=== PATIENT | male | born 1945 | race African-American/Black ===

== ENCOUNTER 2020-02-03 08:44 | Emergency (ER) | payer OTHER ==
[2020-02-03 08:52] VITALS: BP 134/66; PULSE 62; TEMP 98.8; BMI 23.5
--- NOTE | 2020-02-03 08:52 | PDOC ---
Rapid Medical Evaluation Time Seen by Provider: 02/03/20 08:46 Medical Evaluation: Allergies Allergy/AdvReac Type Severity Reaction Status Date / Time No Known Allergies Allergy Verified 12/23/19 08:26 02/03/20 08:49 CC: hit rt foot on stool 2 days ago and now with pain and swelling to foot greater to mcp of 1 st toe, hx kidney tx Exam: Noted edema and fluctuant over lat aspect of 1 st mcp without increased warmth, rt foot (dorsally ) + edema, FROM of toes, 2+ pedal pulse Plan: xray of the foot Discharge Disposition - Diagnosis Toe injury - Referrals - Patient Instructions - Post Discharge Activity
[2020-02-03] MEDS ORDERED: ACETAMINOPHEN 325 MG TABLET (FP) PO ONE (09:28)
--- NOTE | 2020-02-03 09:29 | PDOC ---
History of Present Illness - General Chief Complaint: Injury Stated Complaint: RT FOOT PAIN/SWOLLEN Time Seen by Provider: 02/03/20 08:46 - History of Present Illness Initial Comments: Ernesto Leyva is a 74yo man with a PMH of CVA (12/2019), HTN, kidney transplant, right-sided weakness who presents to the ED with right foot pain after striking his foot on a chair leg while walking on Sunday. He has been able to ambulate with his walker, which he uses at baseline, but states that he has had persistent pain and swelling on the inside of his right foot. He took 2 tablets of acetaminophen yesterday without any significant improvement so came to the ED for evaluation. Past History - Medical History Allergies/Adverse Reactions: Allergies Allergy/AdvReac Type Severity Reaction Status Date / Time No Known Allergies Allergy Verified 12/23/19 08:26 Home Medications: Ambulatory Orders Hydrochlorothiazide 25 mg PO DAILY 12/23/19 Metoprolol Tartrate 25 mg PO BID 12/23/19 Mycophenolate Mofetil [Cellcept] 500 mg PO BID 12/23/19 Prednisone 5 mg PO DAILY 12/23/19 Tacrolimus 4 mg PO BID 12/23/19 Tacrolimus [Prograf] 4 mg PO BID 12/23/19 Tamsulosin HCl 0.4 mg PO DAILY 12/23/19 Acetaminophen [Tylenol] 650 mg PO Q6H PRN 12/24/19 Acetaminophen [Tylenol .Regular Strength -] 650 mg PO Q6H PRN tablet 12/25/19 Aspirin Coated [Ecotrin -] 81 mg PO DAILY tablet.ec 12/25/19 Atorvastatin Ca [Lipitor] 80 mg PO HS tablet 12/25/19 Multivitamins [Multivit ([facility] Formul[facility])] 1 tab PO DAILY tab 12/25/19 Nifedipine ER [Procardia XL -] 90 mg PO DAILY tab.er.24 12/25/19 Atorvastatin Ca [Lipitor] 80 mg PO HS #30 tab 12/29/19 Mycophenolate Mofetil [Cellcept -] 500 mg PO BID tablet 12/29/19 Nifedipine [Procardia Xl] 90 mg PO HS #30 tab.er.24 12/29/19 Anemia: No Asthma: No Cancer: No Cardiac Disorders: Yes (HTN) CVA: No COPD: No CHF: No Dementia: No Diabetes: No GI Disorders: No Disorders: No HTN: Yes Hypercholesterolemia: Yes Liver Disease: No Seizures: No Thyroid Disease: No - Surgical History Abdominal Surgery: Yes (Right inguinal hernia repair) Appendectomy: No Cardiac Surgery: No Cholecystectomy: No Lung Surgery: No Neurologic Surgery: No Orthopedic Surgery: Yes (Right shoulder fracture repair) - Immunization History Immunization Up to Date: Yes - Psycho-Social/Smoking History Smoking History: Never smoked Information on smoking cessation initiated: No - Substance Abuse Hx (Audit-C & DAST Scrn) How often the patient has a drink containing alcohol: Never Score: In Men: 4 or > Positive; In Women: 3 or > Positive: 0 Screen Result (Pos requires Nsg. Audit-10AR): Negative In the last yr the pt used illegal drug/Rx for NonMed reason: No Score: Yes response is considered Positive: 0 Screen Result (Positive result requires Nsg. DAST-10): Negative Review of Systems - Review of Systems Comments:: General: No fevers, no chills, no weight or appetite change, no malaise HEENT: No changes in vision, no changes in hearing, no congestion, no sore throat CV: No chest pain, no palpitations, no LE edema Pulm: No SOB, no cough, no wheezing GI: No nausea or vomiting, no change in bowel habits, no melena : No frequency, no urgency, no dysuria Musc: See HPI Skin: No rash, no lesions, no erythema Endo: No excessive thirst, no heat/cold intolerance Heme: No unusual bruising or bleeding, no swollen glands Neuro: No syncope, no numbness/tingling, no focal weakness Vasc: No claudication Psych: No recent change in mood, no SI or HI *Physical Exam - Vital Signs Last Vital Signs Temp Pulse Resp BP Pulse Ox 98.8 F 62 17 134/66 98 02/03/20 08:49 02/03/20 08:49 02/03/20 08:49 02/03/20 08:49 02/03/20 08:49 - Physical Exam General: Comfortable, no acute distress HEENT: Atraumatic, PERRL, EOMI, MMM, voice normal, normal neck ROM Cards: RRR, no murmur appreciated Pulm: Comfortable on room air Ext: Feet w/ bilateral bunions. Rt foot with swelling, erythema, tenderness over medial foot at bunion. Able to bear weight Vasc: Palpable pedal pulses bilaterally Skin: Normal color, no rashes or lesions Neuro: A&Ox3, CN grossly intact, normal speech, motor/sensory grossly intact and symmetric Psych: Mood appropriate to situation ED Treatment Course - RADIOLOGY Radiology Studies Ordered: Category Date Time Status FOOT-RIGHT [RAD] Stat Radiology 02/03/20 09:27 Ordered Medical Decision Making - Medical Decision Making 02/03/20 09:29 Ernesto Leyva is a 74yo man with a PMH of CVA (12/2019), HTN, kidney transplant, right-sided weakness who presents to the ED with right foot pain, swelling, and erythema following a minor injury 3 days ago. - Able to ambulate, unlikely fracture, but will send for xrays to evaluate - Acetaminophen for pain 02/03/20 10:03 - Xray reviewed, no obvious fracture. - Plan to discharge with ortho follow up pending radiology report Discussed with Dr Srea Landa PGY3 Discharge - Discharge Information Problems reviewed: Yes Clinical Impression/Diagnosis: Foot pain, right Condition: Stable Disposition: HOME - Admission No - Follow up/Referral Referrals: Fernando Snow MD [Staff Physician] - - Patient Discharge Instructions Patient Printed Discharge Instructions: DI for Foot Pain Additional Instructions: You were seen in the ER for a foot/toe injury. We did an exam and X-rays, which showed no new concerning findings or fractures. We placed your foot and ankle in an MARIIA bandage, which you can wear for comfort as you need it. You can bear weight on the ankle/foot as tolerated (as your pain allows). After our assessment, we do not believe you are having a medical emergency at this time, and we believe you are safe to go home. Use RICE therapy (rest, ice, compression, elevation) and take Tylenol for the pain. Please follow up with your primary care provider in 1-3 days. Call their clinic as soon as possible and tell them you were seen in the ER. If you have any new or worsening symptoms, especially worsening or severe pain of the ankle/foot/toes, or numbness, tingling, weakness, redness, or paleness of the area, please come back to the ER at any time (24 hours a day). - Post Discharge Activity
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
[2020-02-03] MEDS ORDERED: ACETAMINOPHEN 325 MG TABLET (FP) ONE (10:21)
== END 2020-02-03 10:35 | disposition home or self-care (01) ==
LOC: SUPCPDRO 08:44 → JER 08:44
DX: S99.921A Unspecified injury of right foot, initial encounter (principal); W22.8XXA Striking against or struck by other objects, initial encounter
CPT/HCPCS: 73660-TC-FY; 99283-25

== ENCOUNTER 2020-05-31 12:07 | Emergency (ER) | payer OTHER ==
[2020-05-31 12:32] VITALS: BP 138/75; PULSE 65; TEMP 98.2; BMI 20.3
[2020-05-31] MEDS ORDERED: ACETAMINOPHEN 500 MG TABLET (FP) PO ONE (13:30)
[2020-05-31] MEDS ORDERED: ACETAMINOPHEN 500 MG TABLET (FP) ONE (13:32)
== END 2020-05-31 13:46 | disposition home or self-care (01) ==
LOC: JERFT 12:07
DX: S63.501A Unspecified sprain of right wrist, initial encounter (principal)
CPT/HCPCS: 73110-TC-RT-FY; 73130-TC-RT-FY; 99283-25

== ENCOUNTER 2020-06-26 07:27 | Emergency (ER) | payer OTHER ==
[2020-06-26 08:10] VITALS: BP 142/71; PULSE 82; TEMP 98.1; BMI 20.7
[2020-06-26] MEDS ORDERED: traMADol HCL 50 MG TABLET PO ONE (09:48)
[2020-06-26] MEDS ORDERED: traMADol HCL 50 MG TABLET ONE (09:59)
== END 2020-06-26 10:08 | disposition home or self-care (01) ==
LOC: JER 07:27
DX: M25.531 Pain in right wrist (principal); M25.431 Effusion, right wrist
CPT/HCPCS: 73110-TC-RT-FY; 73130-TC-RT-FY; 99284-25

== ENCOUNTER 2020-07-13 13:23 | Inpatient (IN) | payer OTHER ==
[2020-07-13] MEDS ORDERED: SODIUM CHLORIDE 1,000 ML IV SCH ×2 (13:30→18:59)
[2020-07-13 14:01] VITALS: BMI 20.3
[2020-07-13] MEDS ORDERED: CLOPIDOGREL BISULFATE 300 MG TABLET PO ONE (14:18)
[2020-07-13 14:30] LABS: BASO % 0.2 % (0-2.0); EOS % 1.6 % (0-4.5); HEMATOCRIT 36.7 % (35.4-49); HEMOGLOBIN 12.1 GM/dL (11.7-16.9); MCH 28.1 pg (25.7-33.7); MEAN CELL VOLUME 85.3 fl (80-96); MEAN PLT VOLUME 7.7 fl (7.5-11.1); MONO % 16.1 % (3.8-10.2); NEUT % 75.1 % (42.8-82.8); PLATELET COUNT 283 K/MM3 (134-434); RBC 4.31 M/mm3 (4.00-5.60); RDW 17.7 % (11.9-15.9); WHITE BLOOD COUNT 6.1 K/mm3 (4.0-10.0)
[2020-07-13 14:35] LABS: INR 0.97 (0.83-1.09); PROTHROMBIN TIME (PATIENT) 11.8 SEC (9.7-13.0)
[2020-07-13 14:37] LABS: ACTIVATED PTT 27.3 SECONDS (25.2-36.5)
[2020-07-13 14:47] LABS: CHLORIDE 102 mmol/L (98-107); POTASSIUM 3.5 mmol/L (3.5-5.1); SODIUM 135 mmol/L (136-145)
[2020-07-13 14:49] LABS: CALCIUM 9.3 mg/dL (8.5-10.1)
[2020-07-13 14:50] LABS: ALBUMIN 3.3 g/dl (3.4-5.0); ANION GAP 9 MMOL/L (8-16); CO2 24 mmol/L (21-32); GLUCOSE,RANDOM 115 mg/dL (74-106)
[2020-07-13 14:53] LABS: CREATININE 1.3 mg/dL (0.55-1.3); SGOT/AST 13 U/L (15-37); SGPT/ALT 23 U/L (13-61)
[2020-07-13 14:54] LABS: BILIRUBIN,TOTAL 0.4 mg/dL (0.2-1); TOT PROT 6.7 g/dl (6.4-8.2)
[2020-07-13 14:56] LABS: ALK PHOS 69 U/L (45-117)
[2020-07-13] MEDS ORDERED: PT OWN MED DRAWER 7, Y5N ONE (15:02)
[2020-07-13] MEDS ORDERED: CLOPIDOGREL BISULFATE 300 MG TABLET ONE (15:02)
[2020-07-13 15:46] LABS: CHOLESTEROL 137 mg/dL (50-200)
[2020-07-13 15:47] LABS: LDL CHOLESTEROL (ONLY SJRH) 48 mg/dL (5-100); TRIGLYCERIDES 120 mg/dL (0-150)
[2020-07-13 15:49] LABS: HDL CHOLESTEROL 65 mg/dL (40-60)
[2020-07-13 18:16] LABS: EPI CELLS 7 /uL (0-25.1); HYALINE CASTS 3 /uL (0-3.1); PH,URINE 5.5 (5.0-8.0); URINE APPEARANCE CLEAR; URINE BACTERIA 32 /uL (0-1359); URINE BILIRUBIN NEGATIVE (NEGATIVE); URINE COLOR YELLOW; URINE GLUCOSE (UA) TRACE (NEGATIVE); URINE KETONE NEGATIVE (NEGATIVE); URINE LEUK ESTERASE NEGATIVE (NEGATIVE); URINE NITRITE NEGATIVE (NEGATIVE); URINE PROTEIN 3+ (NEGATIVE); URINE RBC 8 /uL (0-23.9); URINE UROBILINOGEN 0.2 mg/dL (0.2-1.0); URINE WBC 5 /uL (0-25.8)
[2020-07-13] MEDS ORDERED: ATORVASTATIN CA 80 MG TABLET (FP) PO SCH (18:45)
[2020-07-13] MEDS ORDERED: ATORVASTATIN CA 80 MG TABLET (FP) ONE (20:50)
[2020-07-14 02:47] LABS: LDH 171 U/L (87-246)
[2020-07-14 07:52] LABS: BASO % 0.4 % (0-2.0); EOS % 3.1 % (0-4.5); HEMATOCRIT 34.7 % (35.4-49); HEMOGLOBIN 11.7 GM/dL (11.7-16.9); LYMPH % 12.4 % (8-40); MCH 28.4 pg (25.7-33.7); MCHC 33.8 g/dl (32.0-35.9); MEAN CELL VOLUME 83.9 fl (80-96); MEAN PLT VOLUME 7.4 fl (7.5-11.1); MONO % 20.1 % (3.8-10.2); PLATELET COUNT 257 K/MM3 (134-434); RBC 4.14 M/mm3 (4.00-5.60); RDW 17.4 % (11.9-15.9); WHITE BLOOD COUNT 3.9 K/mm3 (4.0-10.0)
[2020-07-14 07:56] LABS: POTASSIUM 3.9 mmol/L (3.5-5.1)
[2020-07-14 08:00] LABS: ALBUMIN 2.8 g/dl (3.4-5.0); BLOOD UREA NITROGEN 16.2 mg/dL (7-18); MAGNESIUM 1.9 mg/dL (1.8-2.4)
[2020-07-14 08:03] LABS: CREATININE 0.9 mg/dL (0.55-1.3); PHOSPHOROUS 2.5 mg/dL (2.5-4.9)
[2020-07-14 08:04] LABS: BILIRUBIN,TOTAL 0.4 mg/dL (0.2-1)
[2020-07-14 08:05] LABS: TOT PROT 5.5 g/dl (6.4-8.2)
[2020-07-14 08:53] LABS: ANISOCYTOSIS 0; MACROCYTOSIS 0; PLATELET ESTIMATE NORMAL
[2020-07-14] MEDS ORDERED: CLOPIDOGREL BISULFATE 75 MG TABLET (FP) ONE (11:24)
[2020-07-14] MEDS: CLOPIDOGREL BISULFATE 75 MG TABLET (FP) PO SCH (11:30)
[2020-07-14] MEDS ORDERED: METOPROLOL TARTRATE 25 MG TABLET (FP) ONE ×2 (14:28→23:04)
[2020-07-14] MEDS ORDERED: HYDROCHLOROTHIAZIDE 25 MG TABLET (FP) ONE (14:28)
[2020-07-14] MEDS ORDERED: FAMOTIDINE 20 MG TABLET ONE (14:29)
[2020-07-14] MEDS ORDERED: NIFEdipine E.R. 30 MG TABLET ONE (14:29)
[2020-07-14] MEDS ORDERED: MAG HYDROX/AL HYDROX/SIMETH 30 ML UNIT-DOSE CUP ONE ×2 (14:30→23:04)
[2020-07-14] MEDS ORDERED: TAMSULOSIN HCL 0.4 MG CAP ONE (14:30)
[2020-07-14] MEDS: MYCOPHENOLATE MOFETIL 500 MG TABLET PO SCH ×2 (14:32→23:07)
[2020-07-14] MEDS: predniSONE 5 MG TABLET (UD) PO SCH (14:34)
[2020-07-14] MEDS: TAMSULOSIN HCL 0.4 MG CAP PO SCH (14:35)
[2020-07-14] MEDS: MAG HYDROX/AL HYDROX/SIMETH 30 ML UNIT-DOSE CUP PO SCH ×4 (14:36→23:41)
[2020-07-14] MEDS: METOPROLOL TARTRATE 25 MG TABLET (FP) PO SCH ×2 (14:36→23:07)
[2020-07-14] MEDS: HYDROCHLOROTHIAZIDE 25 MG TABLET (FP) PO SCH (14:36)
[2020-07-14] MEDS: FAMOTIDINE 20 MG TABLET PO SCH (14:37)
[2020-07-14] MEDS: NIFEdipine E.R 60 MG TABLET PO SCH (14:41)
[2020-07-14] MEDS: hydrALAZINE HCL 25 MG TABLET (FP) PO SCH ×2 (14:41→23:06)
[2020-07-14] MEDS ORDERED: LABETALOL HCL 5 MG/1 ML (100MG/20 ML VIAL) IVPUSH ONE (15:58)
[2020-07-14] MEDS ORDERED: hydrALAZINE HCL 20 MG/ML VIAL IVPUSH ONE (18:23)
[2020-07-14] MEDS ORDERED: ATORVASTATIN CA 80 MG TABLET (FP) ONE (23:04)
[2020-07-14] MEDS ORDERED: hydrALAZINE HCL 25 MG TABLET (FP) ONE (23:04)
[2020-07-14] MEDS ORDERED: HEPARIN NA (PORCINE) 5,000 UNITS/ML 1ML VIAL ONE (23:05)
[2020-07-14] MEDS: HEPARIN NA (PORCINE) 5,000 UNITS/ML 1ML VIAL SQ SCH (23:07)
[2020-07-14] MEDS: ATORVASTATIN CA 80 MG TABLET (FP) PO SCH (23:07)
[2020-07-14] MEDS: MAGNESIUM HYDROX 2400MG/30ML ORAL SUSPENSION 30 ML CUP PO SCH (23:08)
[2020-07-15] MEDS: MAG HYDROX/AL HYDROX/SIMETH 30 ML UNIT-DOSE CUP PO SCH ×5 (03:30→21:10)
[2020-07-15 07:15] LABS: BASO % 0.3 % (0-2.0); EOS % 2.1 % (0-4.5); HEMATOCRIT 36.5 % (35.4-49); HEMOGLOBIN 12.3 GM/dL (11.7-16.9); LYMPH % 12.7 % (8-40); MCH 28.4 pg (25.7-33.7); MCHC 33.6 g/dl (32.0-35.9); MEAN CELL VOLUME 84.6 fl (80-96); MEAN PLT VOLUME 7.5 fl (7.5-11.1); MONO % 16.5 % (3.8-10.2); NEUT % 68.4 % (42.8-82.8); PLATELET COUNT 250 K/MM3 (134-434); RBC 4.32 M/mm3 (4.00-5.60); RDW 17.7 % (11.9-15.9); WHITE BLOOD COUNT 3.9 K/mm3 (4.0-10.0)
[2020-07-15 07:16] LABS: POTASSIUM 3.7 mmol/L (3.5-5.1)
[2020-07-15 07:17] LABS: ALBUMIN 2.9 g/dl (3.4-5.0)
[2020-07-15 07:18] LABS: BLOOD UREA NITROGEN 17.4 mg/dL (7-18); CALCIUM 9.5 mg/dL (8.5-10.1); MAGNESIUM 1.9 mg/dL (1.8-2.4)
[2020-07-15 07:21] LABS: PHOSPHOROUS 2.5 mg/dL (2.5-4.9)
[2020-07-15 07:23] LABS: BILIRUBIN,TOTAL 0.5 mg/dL (0.2-1); TOT PROT 5.8 g/dl (6.4-8.2)
[2020-07-15] MEDS: HEPARIN NA (PORCINE) 5,000 UNITS/ML 1ML VIAL SQ SCH ×3 (08:46→21:11)
[2020-07-15] MEDS: hydrALAZINE HCL 25 MG TABLET (FP) PO SCH ×3 (08:46→21:11)
[2020-07-15] MEDS: TAMSULOSIN HCL 0.4 MG CAP PO SCH (08:47)
[2020-07-15] MEDS ORDERED: PT OWN MED DRAWER 7, Y5N ONE ×2 (10:12→21:01)
[2020-07-15] MEDS: predniSONE 5 MG TABLET (UD) PO SCH (10:19)
[2020-07-15] MEDS: HYDROCHLOROTHIAZIDE 25 MG TABLET (FP) PO SCH (10:19)
[2020-07-15] MEDS: MYCOPHENOLATE MOFETIL 500 MG TABLET PO SCH (10:19)
[2020-07-15] MEDS: NIFEdipine E.R 60 MG TABLET PO SCH (10:19)
[2020-07-15] MEDS: CLOPIDOGREL BISULFATE 75 MG TABLET (FP) PO SCH (10:19)
[2020-07-15] MEDS: METOPROLOL TARTRATE 25 MG TABLET (FP) PO SCH ×2 (10:19→21:11)
[2020-07-15] MEDS: MAGNESIUM HYDROX 2400MG/30ML ORAL SUSPENSION 30 ML CUP PO SCH ×2 (10:19→21:10)
[2020-07-15] MEDS: FERROUS SO4 325 MG TABLET (FP) PO SCH (10:19)
[2020-07-15] MEDS: FAMOTIDINE 20 MG TABLET PO SCH (10:19)
[2020-07-15] MEDS ORDERED: NIFEdipine E.R. 90 MG TABLET PO SCH (12:07)
[2020-07-15] MEDS ORDERED: NIFEdipine E.R. 30 MG TABLET PO ONE (12:08)
[2020-07-15 18:06] LABS: HIV INTERPRETATION NEGATIVE (NEGATIVE)
[2020-07-15] MEDS: ATORVASTATIN CA 80 MG TABLET (FP) PO SCH (21:11)
[2020-07-15] MEDS: TACROLIMUS ANHYDROUS 1 MG CAPSULE PO SCH (21:18)
[2020-07-15] MEDS ORDERED: MYCOPHENOLATE MOFETIL 500 MG TABLET PO SCH (22:00)
[2020-07-15] MEDS ORDERED: TACROLIMUS ANHYDROUS 1 MG CAPSULE PO SCH (22:00)
[2020-07-16] MEDS: MAG HYDROX/AL HYDROX/SIMETH 30 ML UNIT-DOSE CUP PO SCH ×4 (00:14→11:32)
[2020-07-16] MEDS: hydrALAZINE HCL 25 MG TABLET (FP) PO SCH ×2 (06:14→13:47)
[2020-07-16] MEDS: HEPARIN NA (PORCINE) 5,000 UNITS/ML 1ML VIAL SQ SCH (06:14)
[2020-07-16] MEDS ORDERED: PT OWN MED DRAWER 7, Y5N ONE ×4 (06:52→13:45)
[2020-07-16 07:32] LABS: POTASSIUM 3.7 mmol/L (3.5-5.1)
[2020-07-16 07:44] LABS: ALBUMIN 2.9 g/dl (3.4-5.0); CALCIUM 9.3 mg/dL (8.5-10.1)
[2020-07-16 07:45] LABS: BLOOD UREA NITROGEN 23.2 mg/dL (7-18); MAGNESIUM 1.9 mg/dL (1.8-2.4)
[2020-07-16 07:48] LABS: CREATININE 1.1 mg/dL (0.55-1.3); PHOSPHOROUS 2.9 mg/dL (2.5-4.9)
[2020-07-16 07:49] LABS: BILIRUBIN,TOTAL 0.6 mg/dL (0.2-1); TOT PROT 5.8 g/dl (6.4-8.2)
[2020-07-16 07:58] LABS: BASO % 0.2 % (0-2.0); EOS % 3.8 % (0-4.5); HEMATOCRIT 36.6 % (35.4-49); HEMOGLOBIN 12.3 GM/dL (11.7-16.9); LYMPH % 15.7 % (8-40); MCH 28.2 pg (25.7-33.7); MCHC 33.5 g/dl (32.0-35.9); MEAN PLT VOLUME 7.9 fl (7.5-11.1); MONO % 18.5 % (3.8-10.2); NEUT % 61.8 % (42.8-82.8); PLATELET COUNT 264 K/MM3 (134-434); RBC 4.36 M/mm3 (4.00-5.60); RDW 17.5 % (11.9-15.9); WHITE BLOOD COUNT 4.5 K/mm3 (4.0-10.0)
[2020-07-16] MEDS: TAMSULOSIN HCL 0.4 MG CAP PO SCH (08:57)
[2020-07-16] MEDS ORDERED: PENICILLIN G BENZATHINE 2,400,000 UNIT/4 ML PFS IM ONE (09:05)
[2020-07-16] MEDS: CLOPIDOGREL BISULFATE 75 MG TABLET (FP) PO SCH (09:08)
[2020-07-16] MEDS: HYDROCHLOROTHIAZIDE 25 MG TABLET (FP) PO SCH (09:08)
[2020-07-16] MEDS: METOPROLOL TARTRATE 25 MG TABLET (FP) PO SCH (09:08)
[2020-07-16] MEDS: MAGNESIUM HYDROX 2400MG/30ML ORAL SUSPENSION 30 ML CUP PO SCH (09:08)
[2020-07-16] MEDS: FERROUS SO4 325 MG TABLET (FP) PO SCH (09:08)
[2020-07-16] MEDS: TACROLIMUS ANHYDROUS 1 MG CAPSULE PO SCH (09:09)
[2020-07-16] MEDS: FAMOTIDINE 20 MG TABLET PO SCH (09:09)
[2020-07-16] MEDS: predniSONE 5 MG TABLET (UD) PO SCH (11:31)
[2020-07-16 15:53] VITALS: BP 159/87; PULSE 55; TEMP 98.2
== END 2020-07-16 18:30 | disposition home health service (06) | DRG 69 ==
LOC: JER 13:23 → JERBED 17:50 → JICU 07-15 01:37
PROVIDERS: ATTEND Internal Medicine
DX: G45.9 Transient cerebral ischemic attack, unspecified (principal); Z94.0 Kidney transplant status; I69.351 Hemiplegia and hemiparesis following cerebral infarction affecting right dominant side; R29.810 Facial weakness; I16.0 Hypertensive urgency; N40.0 Benign prostatic hyperplasia without lower urinary tract symptoms; I12.9 Hypertensive chronic kidney disease with stage 1 through stage 4 chronic kidney disease, or unspecified chronic kidney disease; N18.9 Chronic kidney disease, unspecified
CPT/HCPCS: 36415; 70450-TC; 70551-TC; 71045-TC-FY; 71250-TC; 76775-TC; 80053; 80061; 80197; 81003; 82550; 82728; 83036; 83615; 83721; 83735; 84100; 84443; 84484; 85025; 85379; 85610; 85730; 86140; 86593; 86780; 86850; 86900; 86901; 87086; 87389; 93005; 93010; 93306-TC; 93880-TC; 97116-GP; 97161-GP; 99285-25; C9803; J1644; J7517; U0003

== ENCOUNTER 2021-05-31 09:04 | Emergency (ER) | payer OTHER ==
[2021-05-31 09:16] VITALS: TEMP 97.3; BMI 21.1
[2021-05-31] MEDS ORDERED: ACETAMINOPHEN 1000 MG/100 ML VIAL IVPB ONE (09:46)
[2021-05-31] MEDS ORDERED: ACETAMINOPHEN INJECTION 100 ML IVPB ONE (10:12)
[2021-05-31 10:49] LABS: EOS % 8.3 % (0-4.5); HEMATOCRIT 37.3 % (35.4-49); HEMOGLOBIN 11.9 GM/dL (11.7-16.9); LYMPH % 25.8 % (8-40); MCH 29.8 pg (25.7-33.7); MCHC 31.9 g/dl (32.0-35.9); MEAN CELL VOLUME 93.6 fl (80-96); MEAN PLT VOLUME 8.3 fl (7.5-11.1); MONO % 6.1 % (3.8-10.2); NEUT % 58.8 % (42.8-82.8); PLATELET COUNT 107 10^3/uL (134-434); RBC 3.99 M/mm3 (4.00-5.60); RDW 17.5 % (11.9-15.9); WHITE BLOOD COUNT 7.6 K/mm3 (4.0-10.0)
[2021-05-31 11:09] LABS: BLOOD UREA NITROGEN 37.4 mg/dL (7-18)
[2021-05-31 11:10] LABS: ALBUMIN 1.4 g/dl (3.4-5.0)
[2021-05-31 11:13] LABS: CREATININE 2.8 mg/dL (0.55-1.3)
[2021-05-31 11:14] LABS: BILIRUBIN,TOTAL 0.4 mg/dL (0.2-1); TOT PROT 5.4 g/dl (6.4-8.2)
[2021-05-31] MEDS ORDERED: SODIUM CHLORIDE 1,000 ML IV STA (12:45)
[2021-05-31 13:47] LABS: EPI CELLS 1 /uL (0-25.1); HYALINE CASTS 0 /uL (0-3.1); PH,URINE 5.5 (5.0-8.0); URINE APPEARANCE CLEAR; URINE BACTERIA 15 /uL (0-1359); URINE BILIRUBIN NEGATIVE (NEGATIVE); URINE COLOR YELLOW; URINE GLUCOSE (UA) 1+ (NEGATIVE); URINE KETONE NEGATIVE (NEGATIVE); URINE LEUK ESTERASE NEGATIVE (NEGATIVE); URINE NITRITE NEGATIVE (NEGATIVE); URINE PROTEIN 1+ (NEGATIVE); URINE RBC 2 /uL (0-23.9); URINE UROBILINOGEN 0.2 mg/dL (0.2-1.0); URINE WBC 2 /uL (0-25.8)
[2021-05-31 16:52] VITALS: BP 145/68; PULSE 78
== END 2021-05-31 16:25 | disposition short-term general hospital (02) ==
LOC: JER 09:04
PROC: 3E033NZ Introduction of Analgesics, Hypnotics, Sedatives into Peripheral Vein, Percutaneous Approach (ICD-10-PCS; principal; 2021-05-31)
PROC: 3E0337Z Introduction of Electrolytic and Water Balance Substance into Peripheral Vein, Percutaneous Approach (ICD-10-PCS; 2021-05-31)
DX: N17.9 Acute kidney failure, unspecified (principal); N13.30 Unspecified hydronephrosis
CPT/HCPCS: 36415; 74176-TC; 80053; 81003; 83605; 85025; 87086; 93005; 93010; 99285-25; C9803; J0131; U0003; U0005

== ENCOUNTER 2022-04-04 15:18 | Inpatient (IN) | payer OTHER ==
[2022-04-04] MEDS ORDERED: ACETAMINOPHEN 1000 MG/100 ML BAG IVPB ONE (17:35)
[2022-04-04] MEDS ORDERED: METOCLOPRAMIDE HCL INJECTION 10 MG/2 ML VIAL IVPUSH ONE (17:37)
[2022-04-04] MEDS ORDERED: METOCLOPRAMIDE HCL INJECTION 10 MG/2 ML VIAL ONE (18:02)
[2022-04-04] MEDS ORDERED: ACETAMINOPHEN INJECTION 100 ML IVPB ONE (18:03)
[2022-04-04] MEDS: SODIUM CHLORIDE 1,000 ML IV SCH (18:33)
[2022-04-04 19:32] LABS: BASO % 0.3 % (0-2.0); EOS % 1.2 % (0-4.5); HEMATOCRIT 35.8 % (35.4-49); HEMOGLOBIN 12.8 GM/dL (11.7-16.9); LYMPH % 12.2 % (8-40); MCH 30.5 pg (25.7-33.7); MCHC 35.6 g/dl (32.0-35.9); MEAN CELL VOLUME 85.7 fl (80-96); MEAN PLT VOLUME 8.5 fl (7.5-11.1); MONO % 17.6 % (3.8-10.2); NEUT % 68.7 % (42.8-82.8); PLATELET COUNT 208 10^3/uL (134-434); RBC 4.18 M/mm3 (4.00-5.60); RDW 18.5 % (11.9-15.9); WHITE BLOOD COUNT 6.9 K/mm3 (4.0-10.0)
[2022-04-04 19:34] LABS: EPI CELLS 4 /uL (0-25.1); HYALINE CASTS 0 /uL (0-3.1); URINE APPEARANCE CLEAR; URINE BACTERIA 0 /uL (0-1359); URINE BILIRUBIN NEGATIVE (NEGATIVE); URINE COLOR YELLOW; URINE GLUCOSE (UA) NEGATIVE (NEGATIVE); URINE KETONE NEGATIVE (NEGATIVE); URINE LEUK ESTERASE NEGATIVE (NEGATIVE); URINE NITRITE NEGATIVE (NEGATIVE); URINE PROTEIN 2+ (NEGATIVE); URINE RBC 13 /uL (0-23.9); URINE UROBILINOGEN 0.2 mg/dL (0.2-1.0); URINE WBC 4 /uL (0-25.8)
[2022-04-04 19:49] LABS: CHLORIDE 89 mmol/L (98-107)
[2022-04-04 19:51] LABS: ALBUMIN 3.6 g/dl (3.4-5.0); BLOOD UREA NITROGEN 27.9 mg/dL (7-18); CALCIUM 9.3 mg/dL (8.5-10.1); CO2 22 mmol/L (21-32); GLUCOSE,RANDOM 125 mg/dL (74-106)
[2022-04-04 19:54] LABS: CREATININE 1.6 mg/dL (0.55-1.3)
[2022-04-04 19:56] LABS: BILIRUBIN,TOTAL 0.3 mg/dL (0.2-1); TOT PROT 8.2 g/dl (6.4-8.2)
[2022-04-04 19:57] LABS: ALK PHOS 134 U/L (45-117)
[2022-04-04 20:11] LABS: ANION GAP 8 MMOL/L (8-16); SGOT/AST 73 U/L (15-37); SGPT/ALT 20 U/L (13-61); SODIUM 118 mmol/L (136-145)
[2022-04-04 21:51] LABS: CALCIUM 8.6 mg/dL (8.5-10.1)
[2022-04-04 21:52] LABS: BLOOD UREA NITROGEN 27.6 mg/dL (7-18)
[2022-04-04 21:55] LABS: CREATININE 1.3 mg/dL (0.55-1.3)
[2022-04-04] MEDS ORDERED: ALBUTEROL SO4 2.5/IPRATROPIUM 0.5 INH SOL 3 ML VIAL.NEB. NEB ONE (22:41)
[2022-04-04] MEDS: ALBUTEROL SO4 2.5/IPRATROPIUM 0.5 INH SOL 3 ML VIAL.NEB. NEB SCH ×2 (22:52→23:10)
[2022-04-05 02:23] LABS: BLOOD UREA NITROGEN 27.3 mg/dL (7-18)
[2022-04-05 02:28] LABS: CREATININE 1.3 mg/dL (0.55-1.3)
[2022-04-05] MEDS: NIFEdipine E.R 60 MG TABLET PO SCH ×3 (02:40→22:59)
[2022-04-05] MEDS: ALBUTEROL SO4 2.5/IPRATROPIUM 0.5 INH SOL 3 ML VIAL.NEB. NEB SCH (02:41)
[2022-04-05] MEDS ORDERED: NIFEdipine E.R 60 MG TABLET ONE ×3 (02:43→22:42)
[2022-04-05] MEDS: hydrALAZINE HCL 50 MG TABLET (FP) PO SCH ×4 (04:26→22:59)
[2022-04-05] MEDS ORDERED: hydrALAZINE HCL 50 MG TABLET (FP) ONE ×3 (04:29→22:50)
[2022-04-05] MEDS ORDERED: HEPARIN NA (PORCINE) 5,000 UNITS/ML 1ML VIAL ONE ×3 (08:27→22:42)
[2022-04-05] MEDS: HEPARIN NA (PORCINE) 5,000 UNITS/ML 1ML VIAL SQ SCH ×3 (08:31→22:59)
[2022-04-05 08:52] LABS: CREATININE, URINE RANDOM < 13.0 mg/dL (30-150)
[2022-04-05 12:07] LABS: BASO % 0.6 % (0-2.0); EOS % 1.5 % (0-4.5); HEMATOCRIT 36.2 % (35.4-49); HEMOGLOBIN 12.8 GM/dL (11.7-16.9); LYMPH % 11.2 % (8-40); MCH 30.6 pg (25.7-33.7); MCHC 35.4 g/dl (32.0-35.9); MEAN CELL VOLUME 86.5 fl (80-96); MEAN PLT VOLUME 7.7 fl (7.5-11.1); MONO % 17.7 % (3.8-10.2); PLATELET COUNT 161 10^3/uL (134-434); RBC 4.19 M/mm3 (4.00-5.60); RDW 17.8 % (11.9-15.9)
[2022-04-05 12:38] LABS: ALBUMIN 3.4 g/dl (3.4-5.0); BLOOD UREA NITROGEN 22.2 mg/dL (7-18); CALCIUM 9.7 mg/dL (8.5-10.1)
[2022-04-05 12:39] LABS: MAGNESIUM 2.2 mg/dL (1.8-2.4)
[2022-04-05 12:41] LABS: CREATININE 1.2 mg/dL (0.55-1.3); PHOSPHOROUS 2.8 mg/dL (2.5-4.9)
[2022-04-05 12:43] LABS: BILIRUBIN,TOTAL 0.6 mg/dL (0.2-1)
[2022-04-05 13:06] LABS: TOT PROT 6.8 g/dl (6.4-8.2)
[2022-04-05] MEDS ORDERED: LOSARTAN POTASSIUM 50 MG TABLET ONE (14:44)
[2022-04-05] MEDS ORDERED: ACETAMINOPHEN 325 MG TABLET (FP) ONE (14:45)
[2022-04-05] MEDS: MYCOPHENOLATE MOFETIL 500 MG TABLET PO SCH ×2 (14:54→22:59)
[2022-04-05] MEDS: LOSARTAN POTASSIUM 25 MG TABLET PO SCH (14:54)
[2022-04-05] MEDS: ACETAMINOPHEN 325 MG TABLET (FP) PO PRN (14:54)
[2022-04-05] MEDS ORDERED: ALBUTEROL SO4 HFA INHALER IH ONE (18:44)
[2022-04-05] MEDS: TACROLIMUS ANHYDROUS 1 MG CAPSULE PO SCH (18:50)
[2022-04-05] MEDS: ALBUTEROL SO4 HFA INHALER IH PRN (18:50)
[2022-04-05] MEDS: SODIUM CHLORIDE 1,000 ML IV SCH (18:51)
[2022-04-05] MEDS ORDERED: hydrALAZINE HCL 25 MG TABLET (FP) ONE (22:42)
[2022-04-06] MEDS: hydrALAZINE HCL 50 MG TABLET (FP) PO SCH ×2 (05:57→14:25)
[2022-04-06] MEDS: HEPARIN NA (PORCINE) 5,000 UNITS/ML 1ML VIAL SQ SCH ×3 (05:58→22:43)
[2022-04-06] MEDS: MYCOPHENOLATE MOFETIL 500 MG TABLET PO SCH ×3 (05:58→22:42)
[2022-04-06] MEDS: SODIUM CHLORIDE 1,000 ML IV SCH (06:16)
[2022-04-06] MEDS: TACROLIMUS ANHYDROUS 1 MG CAPSULE PO SCH ×2 (06:44→18:08)
[2022-04-06] MEDS: LOSARTAN POTASSIUM 25 MG TABLET PO SCH (09:55)
[2022-04-06] MEDS: NIFEdipine E.R 60 MG TABLET PO SCH ×2 (09:55→22:42)
[2022-04-06] MEDS: ACETAMINOPHEN 325 MG TABLET (FP) PO PRN ×2 (12:40→18:19)
[2022-04-06] MEDS ORDERED: predniSONE 20 MG TABLET (UD) PO ONE (15:56)
[2022-04-06] MEDS: ASPIRIN 81 MG CHEWABLE TABLETS PO SCH (16:27)
[2022-04-06] MEDS: CLOPIDOGREL BISULFATE 75 MG TABLET (FP) PO SCH (16:27)
[2022-04-06 16:29] LABS: BASO % 0.2 % (0-2.0); EOS % 0.1 % (0-4.5); HEMATOCRIT 37.8 % (35.4-49); LYMPH % 7.9 % (8-40); MCH 29.7 pg (25.7-33.7); MCHC 34.2 g/dl (32.0-35.9); MEAN CELL VOLUME 86.8 fl (80-96); MEAN PLT VOLUME 8.1 fl (7.5-11.1); MONO % 15.9 % (3.8-10.2); NEUT % 75.9 % (42.8-82.8); PLATELET COUNT 177 10^3/uL (134-434); RBC 4.36 M/mm3 (4.00-5.60); RDW 17.9 % (11.9-15.9)
[2022-04-06] MEDS ORDERED: METOPROLOL TARTRATE 25 MG TABLET (FP) PO ONE (16:29)
[2022-04-06] MEDS ORDERED: REMDESIVIR 200 MG in SODIUM CHLORIDE 250 ML IVPB ONE (16:35)
[2022-04-06 16:36] LABS: INR 0.91 (0.83-1.09); PROTHROMBIN TIME (PATIENT) 10.5 SEC (9.7-13.0)
[2022-04-06 16:53] LABS: ALBUMIN 3.5 g/dl (3.4-5.0); BLOOD UREA NITROGEN 16.9 mg/dL (7-18); CALCIUM 9.7 mg/dL (8.5-10.1); MAGNESIUM 1.8 mg/dL (1.8-2.4)
[2022-04-06 16:56] LABS: PHOSPHOROUS 2.3 mg/dL (2.5-4.9)
[2022-04-06 16:58] LABS: BILIRUBIN,TOTAL 0.7 mg/dL (0.2-1); TOT PROT 7.1 g/dl (6.4-8.2)
[2022-04-06 17:34] LABS: ERYTHROCYTE SEDIMENTATION RATE 11 mm/hr (0-20)
[2022-04-06] MEDS ORDERED: SODIUM PHOSPHATE - 30 MM in SODIUM CHLORIDE 250 ML IVPB ONE (17:55)
[2022-04-06] MEDS ORDERED: SODIUM PHOSPHATE - 30 MM in SODIUM CHLORIDE 500 ML IVPB ONE (18:34)
[2022-04-06 20:59] LABS: N-TERMINAL BNP 3997.4 pg/ml (5-450)
[2022-04-06] MEDS: METOPROLOL TARTRATE 25 MG TABLET (FP) PO SCH (22:42)
[2022-04-06] MEDS: hydrALAZINE HCL 25 MG TABLET (FP) PO SCH (22:43)
[2022-04-06] MEDS: ATORVASTATIN CA 80 MG TABLET (FP) PO SCH (22:43)
[2022-04-06] MEDS: DIVALPROEX NA *ER* EXTEND REL 250 MG TABLET.SA PO SCH (22:43)
[2022-04-07] MEDS: hydrALAZINE HCL 25 MG TABLET (FP) PO SCH ×3 (06:14→22:04)
[2022-04-07] MEDS: HEPARIN NA (PORCINE) 5,000 UNITS/ML 1ML VIAL SQ SCH ×3 (06:14→22:04)
[2022-04-07] MEDS: MYCOPHENOLATE MOFETIL 500 MG TABLET PO SCH ×3 (06:14→22:05)
[2022-04-07] MEDS: TACROLIMUS ANHYDROUS 1 MG CAPSULE PO SCH ×2 (06:31→18:51)
[2022-04-07] MEDS ORDERED: predniSONE 5 MG TABLET (UD) PO SCH (10:00)
[2022-04-07] MEDS: LOSARTAN POTASSIUM 25 MG TABLET PO SCH (10:09)
[2022-04-07] MEDS: ASPIRIN 81 MG CHEWABLE TABLETS PO SCH (10:09)
[2022-04-07] MEDS: FAMOTIDINE 20 MG TABLET PO SCH (10:09)
[2022-04-07] MEDS: predniSONE 20 MG TABLET (UD) PO SCH (10:09)
[2022-04-07] MEDS: CLOPIDOGREL BISULFATE 75 MG TABLET (FP) PO SCH (10:09)
[2022-04-07] MEDS: NIFEdipine E.R 60 MG TABLET PO SCH ×2 (10:09→22:04)
[2022-04-07] MEDS: METOPROLOL TARTRATE 25 MG TABLET (FP) PO SCH ×2 (10:09→22:04)
[2022-04-07 10:33] LABS: BASO % 0.4 % (0-2.0); HEMOGLOBIN 12.9 GM/dL (11.7-16.9); LYMPH % 5.8 % (8-40); MCH 30.6 pg (25.7-33.7); MCHC 34.9 g/dl (32.0-35.9); MEAN CELL VOLUME 87.7 fl (80-96); MEAN PLT VOLUME 7.9 fl (7.5-11.1); MONO % 15.6 % (3.8-10.2); NEUT % 78.2 % (42.8-82.8); PLATELET COUNT 176 10^3/uL (134-434); RBC 4.22 M/mm3 (4.00-5.60); RDW 17.8 % (11.9-15.9); WHITE BLOOD COUNT 9.2 K/mm3 (4.0-10.0)
[2022-04-07 10:37] LABS: INR 0.97 (0.83-1.09); PROTHROMBIN TIME (PATIENT) 11.2 SEC (9.7-13.0)
[2022-04-07 10:38] LABS: ACTIVATED PTT 31.5 SECONDS (25.2-36.5)
[2022-04-07 11:09] LABS: CHLORIDE 103 mmol/L (98-107); ERYTHROCYTE SEDIMENTATION RATE 18 mm/hr (0-20); SODIUM 134 mmol/L (136-145)
[2022-04-07 11:12] LABS: ALBUMIN 3.3 g/dl (3.4-5.0)
[2022-04-07 11:14] LABS: CALCIUM 9.4 mg/dL (8.5-10.1); CO2 20 mmol/L (21-32); GLUCOSE,RANDOM 105 mg/dL (74-106)
[2022-04-07 11:15] LABS: MAGNESIUM 1.7 mg/dL (1.8-2.4)
[2022-04-07 11:16] LABS: CREATININE 1.1 mg/dL (0.55-1.3); SGOT/AST 38 U/L (15-37)
[2022-04-07 11:17] LABS: PHOSPHOROUS 4.2 mg/dL (2.5-4.9); SGPT/ALT 18 U/L (13-61)
[2022-04-07 11:18] LABS: BILIRUBIN,TOTAL 0.6 mg/dL (0.2-1); TOT PROT 7.6 g/dl (6.4-8.2)
[2022-04-07 11:19] LABS: ALK PHOS 50 U/L (45-117)
[2022-04-07 11:23] LABS: ANION GAP 11 MMOL/L (8-16)
[2022-04-07] MEDS: DIVALPROEX NA *ER* EXTEND REL 250 MG TABLET.SA PO SCH ×2 (11:58→22:04)
[2022-04-07] MEDS ORDERED: REMDESIVIR 100 MG in SODIUM CHLORIDE 270 ML IVPB ONE (16:36)
[2022-04-07] MEDS: ATORVASTATIN CA 80 MG TABLET (FP) PO SCH (22:04)
[2022-04-08] MEDS: hydrALAZINE HCL 25 MG TABLET (FP) PO SCH ×3 (06:32→21:35)
[2022-04-08] MEDS: HEPARIN NA (PORCINE) 5,000 UNITS/ML 1ML VIAL SQ SCH ×3 (06:32→21:36)
[2022-04-08] MEDS: TACROLIMUS ANHYDROUS 1 MG CAPSULE PO SCH ×3 (06:33→19:06)
[2022-04-08] MEDS: ACETAMINOPHEN 325 MG TABLET (FP) PO PRN ×2 (06:35→13:52)
[2022-04-08] MEDS: MYCOPHENOLATE MOFETIL 500 MG TABLET PO SCH ×3 (07:23→21:35)
[2022-04-08] MEDS: NIFEdipine E.R 60 MG TABLET PO SCH ×2 (09:53→21:38)
[2022-04-08] MEDS: ASPIRIN 81 MG CHEWABLE TABLETS PO SCH (09:53)
[2022-04-08] MEDS: predniSONE 20 MG TABLET (UD) PO SCH (09:53)
[2022-04-08] MEDS: LOSARTAN POTASSIUM 25 MG TABLET PO SCH (09:53)
[2022-04-08] MEDS: FAMOTIDINE 20 MG TABLET PO SCH (09:53)
[2022-04-08] MEDS: CLOPIDOGREL BISULFATE 75 MG TABLET (FP) PO SCH (09:53)
[2022-04-08] MEDS: METOPROLOL TARTRATE 25 MG TABLET (FP) PO SCH ×2 (09:53→21:37)
[2022-04-08] MEDS: DIVALPROEX NA *ER* EXTEND REL 250 MG TABLET.SA PO SCH ×2 (09:55→21:36)
[2022-04-08] MEDS: ALBUTEROL SO4 HFA INHALER IH PRN (11:14)
[2022-04-08] MEDS ORDERED: REMDESIVIR 100 MG in SODIUM CHLORIDE 270 ML IVPB ONE (16:36)
[2022-04-08] MEDS: ATORVASTATIN CA 80 MG TABLET (FP) PO SCH (21:37)
[2022-04-09] MEDS: hydrALAZINE HCL 25 MG TABLET (FP) PO SCH ×3 (06:09→21:40)
[2022-04-09] MEDS: HEPARIN NA (PORCINE) 5,000 UNITS/ML 1ML VIAL SQ SCH ×3 (06:10→21:42)
[2022-04-09] MEDS: MYCOPHENOLATE MOFETIL 500 MG TABLET PO SCH ×3 (06:10→21:41)
[2022-04-09] MEDS: TACROLIMUS ANHYDROUS 1 MG CAPSULE PO SCH ×2 (06:11→17:14)
[2022-04-09 08:32] LABS: BASO % 0.2 % (0-2.0); EOS % 0.3 % (0-4.5); HEMATOCRIT 35.4 % (35.4-49); HEMOGLOBIN 11.7 GM/dL (11.7-16.9); LYMPH % 15.9 % (8-40); MCH 29.5 pg (25.7-33.7); MCHC 33.2 g/dl (32.0-35.9); MEAN CELL VOLUME 88.9 fl (80-96); MEAN PLT VOLUME 7.8 fl (7.5-11.1); MONO % 19.1 % (3.8-10.2); NEUT % 64.5 % (42.8-82.8); PLATELET COUNT 178 10^3/uL (134-434); RBC 3.98 M/mm3 (4.00-5.60); WHITE BLOOD COUNT 5.8 K/mm3 (4.0-10.0)
[2022-04-09 09:06] LABS: ALBUMIN 2.9 g/dl (3.4-5.0); BLOOD UREA NITROGEN 27.7 mg/dL (7-18); CALCIUM 9.4 mg/dL (8.5-10.1); MAGNESIUM 1.8 mg/dL (1.8-2.4)
[2022-04-09 09:10] LABS: CREATININE 1.1 mg/dL (0.55-1.3)
[2022-04-09 09:12] LABS: BILIRUBIN,TOTAL 0.4 mg/dL (0.2-1); TOT PROT 6.1 g/dl (6.4-8.2)
[2022-04-09] MEDS: predniSONE 20 MG TABLET (UD) PO SCH (09:35)
[2022-04-09] MEDS: NIFEdipine E.R 60 MG TABLET PO SCH ×2 (09:35→21:43)
[2022-04-09] MEDS: CLOPIDOGREL BISULFATE 75 MG TABLET (FP) PO SCH (09:35)
[2022-04-09] MEDS: LOSARTAN POTASSIUM 25 MG TABLET PO SCH (09:35)
[2022-04-09] MEDS: ASPIRIN 81 MG CHEWABLE TABLETS PO SCH (09:35)
[2022-04-09] MEDS: METOPROLOL TARTRATE 25 MG TABLET (FP) PO SCH ×2 (09:35→21:42)
[2022-04-09] MEDS: DIVALPROEX NA *ER* EXTEND REL 250 MG TABLET.SA PO SCH ×2 (09:37→22:52)
[2022-04-09] MEDS: FAMOTIDINE 20 MG TABLET PO SCH (09:40)
[2022-04-09] MEDS: REMDESIVIR 100 MG in SODIUM CHLORIDE 250 ML IVPB SCH (16:38)
[2022-04-09] MEDS: ATORVASTATIN CA 80 MG TABLET (FP) PO SCH (21:42)
[2022-04-10] MEDS: hydrALAZINE HCL 25 MG TABLET (FP) PO SCH ×3 (05:42→21:04)
[2022-04-10] MEDS: MYCOPHENOLATE MOFETIL 500 MG TABLET PO SCH ×3 (05:43→21:05)
[2022-04-10] MEDS: HEPARIN NA (PORCINE) 5,000 UNITS/ML 1ML VIAL SQ SCH ×3 (05:44→21:08)
[2022-04-10] MEDS: TACROLIMUS ANHYDROUS 1 MG CAPSULE PO SCH ×2 (05:44→19:54)
[2022-04-10 09:48] LABS: BASO % 0.2 % (0-2.0); EOS % 0.6 % (0-4.5); HEMATOCRIT 39.3 % (35.4-49); HEMOGLOBIN 13.1 GM/dL (11.7-16.9); LYMPH % 17.1 % (8-40); MCH 29.4 pg (25.7-33.7); MCHC 33.4 g/dl (32.0-35.9); MEAN CELL VOLUME 88.2 fl (80-96); MONO % 15.1 % (3.8-10.2); PLATELET COUNT 220 10^3/uL (134-434); RBC 4.45 M/mm3 (4.00-5.60); WHITE BLOOD COUNT 5.9 K/mm3 (4.0-10.0)
[2022-04-10] MEDS ORDERED: REMDESIVIR 100 MG in SODIUM CHLORIDE 250 ML IVPB SCH (10:00)
[2022-04-10 10:11] LABS: ALBUMIN 3.2 g/dl (3.4-5.0); BLOOD UREA NITROGEN 27.8 mg/dL (7-18); MAGNESIUM 1.8 mg/dL (1.8-2.4)
[2022-04-10 10:14] LABS: CREATININE 1.1 mg/dL (0.55-1.3)
[2022-04-10 10:17] LABS: BILIRUBIN,TOTAL 0.6 mg/dL (0.2-1); TOT PROT 6.8 g/dl (6.4-8.2)
[2022-04-10] MEDS: CLOPIDOGREL BISULFATE 75 MG TABLET (FP) PO SCH (10:49)
[2022-04-10] MEDS: FAMOTIDINE 20 MG TABLET PO SCH (10:49)
[2022-04-10] MEDS: LOSARTAN POTASSIUM 25 MG TABLET PO SCH (10:49)
[2022-04-10] MEDS: NIFEdipine E.R 60 MG TABLET PO SCH ×2 (10:49→21:04)
[2022-04-10] MEDS: predniSONE 20 MG TABLET (UD) PO SCH (10:49)
[2022-04-10] MEDS: METOPROLOL TARTRATE 25 MG TABLET (FP) PO SCH ×2 (10:50→21:04)
[2022-04-10] MEDS: ACETAMINOPHEN 325 MG TABLET (FP) PO PRN (10:50)
[2022-04-10] MEDS: ASPIRIN 81 MG CHEWABLE TABLETS PO SCH (10:50)
[2022-04-10] MEDS: DIVALPROEX NA *ER* EXTEND REL 250 MG TABLET.SA PO SCH ×2 (11:02→21:05)
[2022-04-10] MEDS: REMDESIVIR 100 MG in SODIUM CHLORIDE 250 ML IVPB SCH (16:00)
[2022-04-10 17:02] VITALS: BMI 22.3
[2022-04-10] MEDS ORDERED: ZINC OXIDE 20% TOPICAL OINTMENT 30 GM TUBE TP PRN (20:16)
[2022-04-10] MEDS ORDERED: ZINC OXIDE/PETROLATUM,WHITE 1 APPLIC OINT...G. TP PRN (20:50)
[2022-04-10] MEDS: ATORVASTATIN CA 80 MG TABLET (FP) PO SCH (21:04)
[2022-04-11 06:58] VITALS: RESP 20
[2022-04-11] MEDS: MYCOPHENOLATE MOFETIL 500 MG TABLET PO SCH ×2 (07:25→13:42)
[2022-04-11] MEDS: hydrALAZINE HCL 25 MG TABLET (FP) PO SCH ×2 (07:25→13:41)
[2022-04-11] MEDS: TACROLIMUS ANHYDROUS 1 MG CAPSULE PO SCH (07:25)
[2022-04-11] MEDS: HEPARIN NA (PORCINE) 5,000 UNITS/ML 1ML VIAL SQ SCH (07:27)
[2022-04-11 09:01] LABS: BASO % 0.2 % (0-2.0); EOS % 0.1 % (0-4.5); HEMATOCRIT 35.5 % (35.4-49); HEMOGLOBIN 12.3 GM/dL (11.7-16.9); LYMPH % 11.3 % (8-40); MCH 30.5 pg (25.7-33.7); MCHC 34.6 g/dl (32.0-35.9); MEAN CELL VOLUME 88.2 fl (80-96); MEAN PLT VOLUME 7.4 fl (7.5-11.1); MONO % 8.9 % (3.8-10.2); NEUT % 79.5 % (42.8-82.8); PLATELET COUNT 195 10^3/uL (134-434); RBC 4.02 M/mm3 (4.00-5.60); RDW 17.7 % (11.9-15.9)
[2022-04-11] MEDS ORDERED: predniSONE 10 MG TABLET (UD) PO SCH (09:19)
[2022-04-11 09:29] LABS: BLOOD UREA NITROGEN 26.6 mg/dL (7-18); CALCIUM 9.4 mg/dL (8.5-10.1)
[2022-04-11 09:30] LABS: ALBUMIN 2.9 g/dl (3.4-5.0); MAGNESIUM 1.8 mg/dL (1.8-2.4)
[2022-04-11 09:32] LABS: CREATININE 1.1 mg/dL (0.55-1.3)
[2022-04-11 09:33] LABS: TOT PROT 6.2 g/dl (6.4-8.2)
[2022-04-11 09:34] LABS: BILIRUBIN,TOTAL 0.4 mg/dL (0.2-1)
[2022-04-11 09:52] VITALS: BP 149/82; PULSE 66; TEMP 98.8
[2022-04-11] MEDS: METOPROLOL TARTRATE 25 MG TABLET (FP) PO SCH (09:53)
[2022-04-11] MEDS: CLOPIDOGREL BISULFATE 75 MG TABLET (FP) PO SCH (09:53)
[2022-04-11] MEDS: NIFEdipine E.R 60 MG TABLET PO SCH (09:53)
[2022-04-11] MEDS: FAMOTIDINE 20 MG TABLET PO SCH (09:53)
[2022-04-11] MEDS: ASPIRIN 81 MG CHEWABLE TABLETS PO SCH (09:53)
[2022-04-11] MEDS: DIVALPROEX NA *ER* EXTEND REL 250 MG TABLET.SA PO SCH (09:53)
[2022-04-11] MEDS: LOSARTAN POTASSIUM 25 MG TABLET PO SCH (09:54)
[2022-04-11] MEDS: ACETAMINOPHEN 325 MG TABLET (FP) PO PRN (09:58)
[2022-04-11] MEDS ORDERED: HEPARIN NA (PORCINE) 5,000 UNITS/ML 1ML VIAL SQ SCH (14:00)
== END 2022-04-11 14:55 | disposition home or self-care (01) | DRG 178 ==
LOC: JER 15:18 → JERBED 22:12 → J8W 04-06 02:09
PROVIDERS: ADMIT Internal Medicine; ATTEND Nurse Practitioner Family
PROC: XW033E5 Introduction of Remdesivir Anti-infective into Peripheral Vein, Percutaneous Approach, New Technology Group 5 (ICD-10-PCS; principal; 2022-04-06)
DX: U07.1 COVID-19 (principal); E87.1 Hypo-osmolality and hyponatremia; I69.351 Hemiplegia and hemiparesis following cerebral infarction affecting right dominant side; Z94.0 Kidney transplant status; N17.9 Acute kidney failure, unspecified; I10 Essential (primary) hypertension; M21.612 Bunion of left foot; R06.2 Wheezing; R22.40 Localized swelling, mass and lump, unspecified lower limb; D49.89 Neoplasm of unspecified behavior of other specified sites; E78.5 Hyperlipidemia, unspecified; W18.30XA Fall on same level, unspecified, initial encounter; Y92.238 Other place in hospital as the place of occurrence of the external cause
CPT/HCPCS: 0241U-QW; 36415; 71045-TC-FY; 71250-TC; 73000-TC-LT-FY; 73030-TC-RT-FY; 73718-TC-RT; 73719; 80048; 80053; 80061; 80197; 81003; 82570; 82728; 82962; 83036; 83735; 83880; 83930; 83935; 84100; 84132; 84300; 84443; 85025; 85379; 85610; 85651; 85730; 86140; 87086; 93005; 93010; 97116-GP; 97161-GP; 99285-25; A9579; C9399; J1644; J7517